=== PATIENT | female | born 1950 | race Hispanic/Latino ===

== ENCOUNTER 2021-08-03 07:42 | Outpatient (CLI) | payer MEDICARE | END 2021-08-03 07:43 | disposition home or self-care (01) | LOC: CSHCT 07:42 | PROVIDERS: ATTEND Physician Assistant Medical | DX: R10.30 Lower abdominal pain, unspecified (principal); R63.0 Anorexia; Z80.0 Family history of malignant neoplasm of digestive organs; A04.8 Other specified bacterial intestinal infections; N28.1 Cyst of kidney, acquired | CPT/HCPCS: 74177; 82565 ==

== ENCOUNTER 2024-03-06 08:46 | Outpatient (CLI) | payer MEDICARE | END 2024-03-06 08:47 | disposition home or self-care (01) | LOC: CSHRAD 08:46 | PROVIDERS: ATTEND Physician Assistant Medical | DX: K21.9 Gastro-esophageal reflux disease without esophagitis (principal); R10.30 Lower abdominal pain, unspecified; R10.33 Periumbilical pain | CPT/HCPCS: 74177; 82565 ==

== ENCOUNTER 2025-04-03 10:46 | Outpatient (CLI) | payer MEDICARE | END 2025-04-03 10:47 | disposition home or self-care (01) | LOC: CSHMAMMO 10:46 | PROVIDERS: ATTEND Family Medicine | PROC: 0HBU3ZX Excision of Left Breast, Percutaneous Approach, Diagnostic (ICD-10-PCS; principal; 2025-04-03) | DX: D24.2 Benign neoplasm of left breast (principal); N60.82 Other benign mammary dysplasias of left breast | CPT/HCPCS: 19081; 19082; 76098; 76642; 77065; A4648 ×2; G0279; 88305 ==